=== PATIENT | male | born 1965 | race Caucasian/White ===

== ENCOUNTER 2022-06-15 07:53 | Day surgery (SDC) | payer OTHER ==
[~2022-06-15] VITALS: Ht 167.6 cm; Wt 56.7 kg
[2022-06-15] MEDS ORDERED: MIDAZOLAM 5 MG/5 ML VIAL ONE (10:01)
[2022-06-15] MEDS ORDERED: LIDOCAINE 2% 100 MG/5 ML UJET TP ONE (10:01)
[2022-06-15] MEDS ORDERED: fentaNYL citrate 0.05 MG/ML VIAL ONE (10:01)
[2022-06-15] MEDS ORDERED: MIDAZOLAM 2 MG/2 ML VIAL ONE (10:01)
[2022-06-15] MEDS ORDERED: MIDAZOLAM 5 MG/5 ML VIAL IV ONE (11:55)
[2022-06-15] MEDS ORDERED: fentaNYL citrate 0.05 MG/ML VIAL IVP ONE (11:55)
== END 2022-06-15 11:35 | disposition home or self-care (01) ==
LOC: MOR 07:53 → MMU 07:54 → MOR 11:35
PROVIDERS: ATTEND Internal Medicine Gastroenterology
DX: Z12.11 Encounter for screening for malignant neoplasm of colon (principal); K63.5 Polyp of colon; K21.9 Gastro-esophageal reflux disease without esophagitis; E78.00 Pure hypercholesterolemia, unspecified; Z80.0 Family history of malignant neoplasm of digestive organs; Z79.899 Other long term (current) drug therapy; Z20.822 Contact with and (suspected) exposure to COVID-19
CPT/HCPCS: 43235; 45385; 87426; J2250; J3010